=== PATIENT | male | born 1985 | race Caucasian/White ===

== ENCOUNTER 2018-12-14 18:42 | Emergency (ER) | payer MEDICAID ==
[~2018-12-14] VITALS: Ht 170.2 cm; Wt 141.0 kg
[2018-12-14 18:45] VITALS: Ht 170.2 cm; Wt 141.0 kg
[2018-12-14] MEDS ORDERED: SOD CHLORIDE 0.9% 1,000 ML IV STA (19:18)
[2018-12-14] MEDS ORDERED: MECLIZINE 12.5 MG TAB PO ONE (19:30)
[2018-12-14 21:28] VITALS: BP 155/95; PULSE 98; RESP 18
[2018-12-14] MEDS ORDERED: LORAZEPAM 2 MG INJ IV ONE (21:30)
--- NOTE | 2018-12-14 21:37 | ERD ---
ER Documentation Chief Complaint Chief Complaint C/O DIZZINESS AND SWEATING A LOT TODAY HPI This is a 33-year-old male with no past medical history. He presents to the emergency department today stating he felt dizziness and lightheadedness. He stated the dizziness was a feeling as though the room was going to spin around him. It was worse when he was standing up and better when he was lying supine. 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 He had a significant amount of sweating. He had palpitations. He denied any chest pain or pressure. No shortness of breath at rest or exertion. He denies any polyuria or polydipsia. He does state however that he has a strong family history of diabetes. He denies any abdominal pain. He denies a headache or neck pain. ROS All systems reviewed and are negative except as per history of present illness. Allergies Allergies: Coded Allergies: No Known Allergy (Unverified , 12/14/18) PMhx/Soc Medical and Surgical Hx: pt denies Medical Hx, pt denies Surgical Hx Hx Alcohol Use: No Hx Substance Use: No Hx Tobacco Use: No Smoking Status: Never smoker Physical Exam Vitals Vital Signs Date Temp Pulse Resp B/P (MAP) Pulse Ox O2 O2 Flow FiO2 Time Delivery Rate 12/14/18 106 16 164/99 99 Room Air 20:16 (120) 12/14/18 97.9 112 16 151/94 97 Room Air 19:39 (113) 12/14/18 99.1 115 22 160/92 96 18:45 (114) Physical Exam Constitutional:Well-developed. Well-nourished. HEENT:Normocephalic. Atraumatic.Pupils were equal round reactive to light. Moist mucous membranes.No tonsillar exudates. Neck: No nuchal rigidity. No lymphadenopathy. No posterior cervical spine tenderness or step-offs. Respiratory: Not using accessory muscles of respiration.Lungs were clear to auscultation bilaterally. No rhonchi. No rales. No wheezing. Cardiovascular: Tachycardic with regular rhythm.No murmurs. No rubs were appreciated.S1, S2 normal. Distal pulses are palpable 2+ bilaterally. GI: Abdomen was soft. Nontender. Non Distended. No pulsatile abdominal masses or bruits. No rebound. No guarding. Bowel sounds were present and normal. Muscle skeletal: Full range of motion of both the upper and lower extremities bilaterally.Normal muscle tone.No assymetrical calf tenderness or swelling. Skin: Diaphoresis. No petechia, no purpura. No lesions on the palms or the soles of the feet. No maculopapular rash. NEURO: Patient was alert, awake, orientated x3.No facial droop. Gait observed and normal with no ataxia.Speech had regular rate and rhythm. No focal neurological deficits. Peripheral fatigable nystagmus most prominent left-sided gaze Result Diagram: 12/14/18193612/14/181936 Results 24 hrs Laboratory Tests Test 12/14/18 19:37 White Blood Count 11.2 10^3/ul Red Blood Count 4.98 10^6/ul Hemoglobin 14.3 g/dl Hematocrit 41.9 % Mean Corpuscular Volume 84.1 fl Mean Corpuscular Hemoglobin 28.7 pg Mean Corpuscular Hemoglobin Concent 34.1 g/dl Red Cell Distribution Width 12.5 % Platelet Count 257 10^3/UL Mean Platelet Volume 9.9 fl Immature Granulocytes % 0.400 % Neutrophils % 68.5 % Lymphocytes % 23.0 % Monocytes % 6.9 % Eosinophils % 1.0 % Basophils % 0.2 % Nucleated Red Blood Cells % 0.0 /100WBC Immature Granulocytes # 0.040 10^3/ul Neutrophils # 7.6 10^3/ul Lymphocytes # 2.6 10^3/ul Monocytes # 0.8 10^3/ul Eosinophils # 0.1 10^3/ul Basophils # 0.0 10^3/ul Nucleated Red Blood Cells # 0.0 10^3/ul Prothrombin Time 12.0 Sec Prothrombin Time Ratio 0.9 INR International Normalized Ratio 0.88 Activated Partial Thromboplast Time 25.4 Sec Sodium Level 143 mmol/L Potassium Level 3.9 mmol/L Chloride Level 104 mmol/L Carbon Dioxide Level 28 mmol/L Anion Gap 11 Blood Urea Nitrogen 14 mg/dl Creatinine 0.71 mg/dl Est Glomerular Filtrat Rate mL/min > 60 mL/min Glucose Level 150 mg/dl Hemoglobin A1c 6.1 % Calcium Level 9.6 mg/dl Total Bilirubin 0.4 mg/dl Direct Bilirubin 0.00 mg/dl Indirect Bilirubin 0.4 mg/dl Aspartate Amino Transf (AST/SGOT) 33 IU/L Alanine Aminotransferase (ALT/SGPT) 64 IU/L Alkaline Phosphatase 71 IU/L Creatine Kinase 205 IU/L Creatine Kinase Index 1.2 Creatinine Kinase MB (Mass) 2.36 ng/ml Troponin I < 0.012 ng/ml Total Protein 7.9 g/dl Albumin 4.3 g/dl Globulin 3.60 g/dl Albumin/Globulin Ratio 1.19 Current Medications Medications Dose Sig/Jie Start Time Status Last (Trade) Ordered Route PRN Stop Time Admin Dose Reason Admin Sodium 1,000 ml @ Q1H STAT 12/14/18 DC 12/14/18 Chloride 1,000 mls/hr IV 19:18 12/14/18 19:38 20:17 Meclizine 25 mg ONCE ONCE 12/14/18 DC 12/14/18 HCl PO 19:30 12/14/18 19:38 (Antivert) 19:31 Lorazepam 1 mg ONCE ONCE 12/14/18 (Ativan) IV 21:30 12/14/18 21:31 Procedures/MDM This patient was seen and evaluated by myself. The patient presented to the emergency department complaining of dizziness. My differential diagnosis included but was not limited to hypovolemia, myocardial infarction, pulmonary embolism, hypoglycemia, hypoxia, anemia, vasovagal episode, hypothyroidism, anxiety, peripheral or central vertigo. The patient was placed on a monitor worker, continuous pulse oximetry and IV access established by nursing staff. The patient had mild diaphoresis. The patient had been given a liter bolus of normal saline. 12 Lead EKG tracing ordered and reviewed by myself showed: Sinus tachycardia 115 bpm and no arrhythmia. WA interval normal. QRS duration normal. Premature atrial complexes No ST segment elevation No ST segment depression. No changes consistent with acute ischemia. The patient had no findings of atypical myocardial ischemia. I did feel the patient's symptoms were exacerbated by heat exhaustion. His tachycardia and diaphoresis have resolved after a liter bolus of normal saline. The patient was also experiencing vertigo which I felt was peripheral versus central in origin. The vertigo resolved after given Antivert. The patient has a family history of diabetes. Obtained a hemoglobin A1c. This was 6.1. I indicated to the patient that he needs to follow-up with his primary care physician as this is a concern for early onset diabetes versus prediabetes. His blood glucose was within normal limits. The patient was discharged home in fair condition. They were instructed to return to the emergency department at any time if there was any worsening of their condition. The patient stated they would follow up with their PCP in the next 24-48 hours to initiate a suitable medication regimen under the care of their PCP as well as to allow their PCP to monitor any drug reactions. The patient was discharged home with prescriptions after they gave informed consent to the new medication. They were also fully informed by myself on the adverse effects and adverse drug interactions in order to provide adequate safeguards to prevent possible adverse reactions to medications. Departure Diagnosis: Primary Impression: Heat exhaustion Encounter type: initial encounter Qualified Codes: T67.5XXA - Heat exhaustion, unspecified, initial encounter Additional Impression: Vertigo Condition: Fair Patient Instructions: Diabetes and Heart Disease, Heat Exhaustion ISAIAS SCHUSTER MD Dec 14, 2018 21:37
== END 2018-12-14 21:57 | disposition home or self-care (01) ==
LOC: E/R 18:42
DX: T67.5XXA Heat exhaustion, unspecified, initial encounter (principal); R40.2142 Coma scale, eyes open, spontaneous, at arrival to emergency department; R40.2362 Coma scale, best motor response, obeys commands, at arrival to emergency department; R40.2252 Coma scale, best verbal response, oriented, at arrival to emergency department
CPT/HCPCS: 36415; 80053; 82550; 82553; 83036; 84484; 85025; 85610; 85730; 93005; 96360; J7030; Z7502; Z7610